=== PATIENT | female | born 1980 | race Caucasian/White ===

== ENCOUNTER 2016-09-13 15:47 | Emergency (ER) | payer SELFPAY ==
[2016-09-13 15:55] VITALS: BMI 26.6
--- NOTE | 2016-09-13 16:33 | ED PDOC ---
Arrival/HPI - General Chief Complaint: Anxiety Time Seen by Provider: 09/13/16 15:59 Historian: Patient - History of Present Illness Narrative History of Present Illness (Text): 09/13/16 16:30 36 year old female presents to the emergency department complaining of anxiety and feeling panicky, attributed to family problems, for the past week. Denies suicidal or homicidal ideation. Patient states she feels safe at home. No other complaints. Time/Duration: 1 week Symptom Onset: Gradual Symptom Course: Unchanged Associated Symptoms (Text): None Past Medical History - Provider Review Nursing Documentation Reviewed: Yes - Past History Past History: No Previous - Past Medical History Past Medical History: No Previous - Psychiatric Hx Depression: No Hx Emotional Abuse: No Hx Physical Abuse: No Hx Substance Use: No Other/Comment: ADHD - Past Surgical History Past Surgical History: No Previous - Suicidal Assessment Feels Threatened In Home Enviroment: No Family/Social History - Physician Review Nursing Documentation Reviewed: Yes Family/Social History: Unknown Family HX Smoking Status: Never Smoked Hx Alcohol Use: No Hx Substance Use: No Allergies/Home Meds Allergies/Adverse Reactions: Allergies amphetamine [From Adderall] Allergy (Verified 09/13/16 15:56) FATIGUE dextroamphetamine [From Adderall] Allergy (Verified 09/13/16 15:56) FATIGUE topiramate [From Topamax] Allergy (Verified 09/13/16 15:56) DIZZINESS Home Medications: Home Meds Medication Instructions Recorded Confirmed No Known Home Med 06/28/12 09/13/16 Review of Systems - Physician Review All systems were reviewed & negative as marked: Yes Physical Exam - Physical Exam Narrative Physical Exam (Text): - Review of Systems Constitutional: Normal. absent: Fatigue, Weight Change, Fevers Eyes: Normal ENT: Normal Respiratory: Normal absent: SOB, Cough, Sputum Cardiovascular: Normal absent: Chest pain, Palpitations, Syncope Gastrointestinal: Normal absent: Abdominal pain, Diarrhea, Nausea, Vomiting Genitourinary: Normal. absent: Dysuria, Frequency, Hematuria Musculoskeletal: Normal. absent: Arthralgias, Back Pain, Neck Pain Skin: Normal Neurological: Normal absent: Focal Weakness Endocrine: Normal Hemo/Lymphatic: Normal Psychiatric: Anxiety, Panicky absent: Suicidal ideation, Homicidal ideation - Physical exam Patient appears age appropriate, speaking full sentences without difficulty - Systems Exam Head: Present: Atraumatic, Normocephalic Pupils: Present: PERRL Extraocular Muscles: Present: EOMI Conjunctiva: Present: Normal Mouth: Present: Moist Mucous Membranes Neck: Present: Normal Range of Motion. No: MIDLINE TENDERNESS, Paraspinal Tenderness Respiratory/Chest: Present: Clear to Auscultation, Good Air Exchange. No: Respiratory Distress, Accessory Muscle Use, Tachypnic Cardiovascular: Present: Regular Rate and Rhythm, Normal S1, S2, Peripheral Pulses Present. No: Murmurs Abdomen: Present: Normal Bowel Sounds, No: Tenderness, Peritoneal Signs, Rebound, Guarding, Distention Back: Present: Normal Inspection. No: Midline Tenderness, Paraspinal Tenderness Upper Extremity: Present: Normal Inspection. No: Cyanosis, Edema Lower Extremity: Present: Normal Inspection. No: Edema Neurological: Present: GCS=15, Speech Normal, cranial nerves II through XII fully intact with no cerebellar abnormality, neuro-sensory fully intact. No focal neurological deficits. Skin: Present: Warm, Dry, Normal Color. No: Rashes Lymphatic: Present: OX3, NI, NC Psychiatric: Present: Alert, Oriented x 3, Normal Insight, Normal Concentration Vital Signs Reviewed: Yes Vital Signs Temp Pulse Resp BP Pulse Ox 09/13/16 16:24 98 F 114 H 20 136/61 100 09/13/16 15:59 98.6 F 108 H 17 138/100 H 99 Temperature: Afebrile Blood Pressure: Normal Pulse: Tachycardic Respiratory Rate: Normal Appearance: Positive for: Well-Appearing, Non-Toxic, Comfortable Pain Distress: None Mental Status: Positive for: Alert and Oriented X 3 Medical Decision Making ED Course and Treatment: Impression: 36 year old female presents to the emergency department complaining of anxiety and feeling panicky, attributed to family problems, for the past week. On physical exam, patient has no acute findings. Differential Diagnosis included but are not limited to: Anxiety Plan: -- EKG, Chest X-ray -- PES evaluation -- Labs -- Reassess and disposition Progress Notes: EKG shows sinus tachycardia at [address]-segment elevations, normal intervals. Interpreted by me. CXR Impression read by me shows no pneumothorax, no pneumonia, no cardiomegaly, no infiltrates 09/13/16 20:51 patient medically cleared for psychiatric evaluation informed that there are no beds at [facility], bed search by PES 09/13/16 21:[address] Sawant in stable condition, pending bed search - Lab Interpretations Lab Results: 09/13/16 17:10 09/13/16 17:10 Lab Results 09/13/16 17:35: Urine HCG, Qual Negative 09/13/16 17:20: Urine Opiates Screen Negative, Urine Methadone Screen Negative, Ur Barbiturates Screen Negative, Ur Phencyclidine Scrn Negative, Ur Amphetamines Screen Negative, U Benzodiazepines Scrn Negative, U Oth Cocaine Metabols Negative, U Cannabinoids Screen Negative 09/13/16 17:20: Urine Color Yellow, Urine Appearance Clear, Urine pH 5.5, Ur Specific [place] <= 1.005, Urine Protein Negative, Urine Glucose (UA) Negative, Urine Ketones Negative, Urine Blood Trace-intact H, Urine Nitrate Negative, Urine Bilirubin Negative, Urine Urobilinogen 0.2, Ur Leukocyte Esterase Trace H , Urine RBC 1 - 3, Urine WBC 2 - 5, Ur Epithelial Cells 6 - 8, Urine Bacteria Few 09/13/16 17:10: Alcohol, Quantitative < 10 09/13/16 17:10: Salicylates < 1 L, Acetaminophen < 10.0 L 09/13/16 17:10: Sodium 138, Potassium 3.3 L, Chloride 105, Carbon Dioxide 23, Anion Gap 13, BUN 8, Creatinine 0.7, Est GFR ( Amer) > 60, Est GFR (Non- Af Amer) > 60, Random Glucose 123 H, Calcium 9.4, Total Bilirubin 0.4, AST 19, ALT 32, Alkaline Phosphatase 76, Total Protein 8.2, Albumin 4.7, Globulin 3.5, Albumin/Globulin Ratio 1.4 09/13/16 17:10: WBC 8.3, RBC 4.34, Hgb 12.6, Hct 36.7, MCV 84.6, MCH 29.0, MCHC 34.3, RDW 14.3, Plt Count 360, MPV 10.9, Gran % 66.2, Lymph % (Auto) 27.3, [place] % (Auto) 5.1, Eos % (Auto) 1.2 L, Baso % (Auto) 0.2, Gran # 5.50, Lymph # 2.3, [place] # 0.4, Eos # 0.1, Baso # 0.02 - RAD Interpretation Radiology Orders: 09/13/16 16:05 CHEST PORTABLE [RAD] Stat - EKG Interpretation Interpreted by ED Physician: Yes Type: 12 lead EKG - Medication Orders Current Medication Orders: Discontinued Medications Potassium Chloride (K-Dur 20 Meq Er Tab) 40 meq PO STAT STA Stop: 09/13/16 17:44 - Scribe Statement The provider has reviewed the documentation as recorded by the Amy Duke Provider Scribe Attestation: All medical record entries made by the Amy were at my direction and personally dictated by me. I have reviewed the chart and agree that the record accurately reflects my personal performance of the history, physical exam, medical decision making, and the department course for this patient. I have also personally directed, reviewed, and agree with the discharge instructions and disposition. Disposition/Present on Arrival - Present on Arrival Any Indicators Present on Arrival: No History of DVT/PE: No History of Uncontrolled Diabetes: No Urinary Catheter: No History of Decub. Ulcer: No History Surgical Site Infection Following: None - Disposition Have Diagnosis and Disposition been Completed?: Yes Diagnosis: Anxiety Disposition Time: 21:24 Condition: STABLE Referrals: PCP,NO [Primary Care Provider] - Follow up with primary
[2016-09-13 17:14] LABS: ADD MANUAL DIFF? NO
[2016-09-13 17:25] LABS: BASO # 0.02 K/mm3 (0.0-2.0); BASO % 0.2 % (0.0-3.0); EOS # 0.1 (0.0-0.7); EOS % 1.2 % (1.5-5.0); GRAN % 66.2 % (50.0-68.0); HEMATOCRIT 36.7 % (36.0-48.0); LYMPH # 2.3 (1.2-3.4); LYMPH % 27.3 % (22.0-35.0); MEAN CELL VOLUME 84.6 fL (80.0-105.0); MEAN CORPUSCULAR HGB CONC 34.3 g/dl (31.0-37.0); MEAN PLATELET VOLUME 10.9 fl (7.0-11.0); MONO # 0.4 (0.1-0.6); MONO % 5.1 % (1.0-6.0); PLATELET COUNT 360 10^3/uL (120.0-450.0); RED CELL DISTRIBUTION WIDTH 14.3 % (11.5-14.5); WHITE BLOOD COUNT 8.3 10^3/ul (4.5-11.0)
[2016-09-13 17:34] LABS: ALB/GLOB RATIO 1.4 (1.1-1.8); ALKALINE PHOSPHATASE 76 U/L (38-133); ALT/SGPT 32 U/L (7-56); AST/SGOT 19 U/L (15-39); BILIRUBIN,TOTAL 0.4 mg/dL (0.2-1.3); BLOOD UREA NITROGEN 8 mg/dL (7-21); CALCIUM 9.4 mg/dL (8.4-10.5); CARBON DIOXIDE 23 mmol/L (21-33); CHLORIDE 105 mmol/L (95-110); GFR AFRICAN-AMERICAN > 60; GLUCOSE,RANDOM 123 mg/dL (70-110); POTASSIUM 3.3 mmol/L (3.6-5.0); SODIUM 138 mmol/L (132-148); TOTAL PROTEIN 8.2 g/dL (5.8-8.3)
[2016-09-13 17:36] LABS: PH,URINE 5.5 (4.7-8.0); URINE BILIRUBIN NEGATIVE (NEGATIVE); URINE BLOOD TRACE-INTACT (NEGATIVE); URINE GLUCOSE (UA) NEGATIVE (NEGATIVE); URINE KETONE NEGATIVE (NEGATIVE); URINE LEUKOCYTE ESTERASE TRACE Leu/uL (NEGATIVE); URINE PROTEIN NEGATIVE mg/dL (<30 mg/dL); URINE UROBILINOGEN 0.2 E.U./dL (<1 E.U./dL)
[2016-09-13] MEDS ORDERED: Potassium Chloride 20 mEq ER Tab PO STA (17:43)
[2016-09-13 17:58] LABS: URINE APPEARANCE CLEAR (CLEAR); URINE COLOR YELLOW (YELLOW)
[2016-09-13 18:05] LABS: URINE BACTERIA FEW (NEG)
--- NOTE | 2016-09-13 22:38 | ED PDOC ---
Physical Exam Vital Signs Reviewed: Yes Vital Signs Temp Pulse Resp BP Pulse Ox 09/13/16 22:12 89 17 137/69 99 09/13/16 16:24 98 F 114 H 20 136/61 100 09/13/16 15:59 98.6 F 108 H 17 138/100 H 99 Temperature: Afebrile Blood Pressure: Normal Pulse: Regular Respiratory Rate: Normal Appearance: Positive for: Well-Appearing, Non-Toxic, Comfortable Pain Distress: None Mental Status: Positive for: Alert and Oriented X 3 Medical Decision Making ED Course and Treatment: 09/13/16 22:37 Case endorsed to me by Dr. Wong, pending bed search. 09/13/16 23:35 Pt accepted on transfer to [facility] for major depressive disorder by Dr. Saucedo. - Lab Interpretations Lab Results: 09/13/16 17:10 09/13/16 17:10 Lab Results 09/13/16 17:35: Urine HCG, Qual Negative 09/13/16 17:20: Urine Opiates Screen Negative, Urine Methadone Screen Negative, Ur Barbiturates Screen Negative, Ur Phencyclidine Scrn Negative, Ur Amphetamines Screen Negative, U Benzodiazepines Scrn Negative, U Oth Cocaine Metabols Negative, U Cannabinoids Screen Negative 09/13/16 17:20: Urine Color Yellow, Urine Appearance Clear, Urine pH 5.5, Ur Specific [place] <= 1.005, Urine Protein Negative, Urine Glucose (UA) Negative, Urine Ketones Negative, Urine Blood Trace-intact H, Urine Nitrate Negative, Urine Bilirubin Negative, Urine Urobilinogen 0.2, Ur Leukocyte Esterase Trace H , Urine RBC 1 - 3, Urine WBC 2 - 5, Ur Epithelial Cells 6 - 8, Urine Bacteria Few 09/13/16 17:10: Alcohol, Quantitative < 10 09/13/16 17:10: Salicylates < 1 L, Acetaminophen < 10.0 L 09/13/16 17:10: Sodium 138, Potassium 3.3 L, Chloride 105, Carbon Dioxide 23, Anion Gap 13, BUN 8, Creatinine 0.7, Est GFR ( Amer) > 60, Est GFR (Non- Af Amer) > 60, Random Glucose 123 H, Calcium 9.4, Total Bilirubin 0.4, AST 19, ALT 32, Alkaline Phosphatase 76, Total Protein 8.2, Albumin 4.7, Globulin 3.5, Albumin/Globulin Ratio 1.4 09/13/16 17:10: WBC 8.3, RBC 4.34, Hgb 12.6, Hct 36.7, MCV 84.6, MCH 29.0, MCHC 34.3, RDW 14.3, Plt Count 360, MPV 10.9, Gran % 66.2, Lymph % (Auto) 27.3, [place] % (Auto) 5.1, Eos % (Auto) 1.2 L, Baso % (Auto) 0.2, Gran # 5.50, Lymph # 2.3, [place] # 0.4, Eos # 0.1, Baso # 0.02 - RAD Interpretation Radiology Orders: 09/13/16 16:05 CHEST PORTABLE [RAD] Stat - Medication Orders Current Medication Orders: Discontinued Medications Potassium Chloride (K-Dur 20 Meq Er Tab) 40 meq PO STAT STA Stop: 09/13/16 17:44 Disposition/Present on Arrival - Present on Arrival Any Indicators Present on Arrival: No History of DVT/PE: No History of Uncontrolled Diabetes: No Urinary Catheter: No History of Decub. Ulcer: No History Surgical Site Infection Following: None - Disposition Have Diagnosis and Disposition been Completed?: Yes Diagnosis: Anxiety Disposition: Transfer [facility] Disposition Time: 22:30 Patient Problems: Current Active Problems Problem Status Onset Anxiety Acute Condition: STABLE Referrals: PCP,NO [Primary Care Provider] - Follow up with primary
[2016-09-14 01:43] VITALS: BP 148/76; PULSE 88; RESP 16; TEMP 97.6; O2SAT 100
--- NOTE | 2016-09-14 08:15 | RAD ---
HISTORY: med clearence COMPARISON: No prior. FINDINGS: LUNGS: No active pulmonary disease. PLEURA: No significant pleural effusion identified, no pneumothorax apparent. CARDIOVASCULAR: Normal. OSSEOUS STRUCTURES: No significant abnormalities. VISUALIZED UPPER ABDOMEN: Normal. OTHER FINDINGS: None. IMPRESSION: No active disease.
--- NOTE | 2016-09-14 10:46 | CARD ---
APPROVED REPORT EKG Measurement Heart [id number] <Conclusion> Sinus tachycardia Possible Left atrial enlargement Left ventricular hypertrophy Nonspecific ST abnormality Abnormal ECG
== END 2016-09-14 01:51 | disposition short-term general hospital (02) ==
LOC: ED 15:47
DX: F41.9 Anxiety disorder, unspecified (principal)
CPT/HCPCS: 71010; 80053; 81001; 82948; 84703; 85025; 87086; 93005; 99284; G0480